=== PATIENT | female | born 1955 | race American Indian/Alaskan Native ===

== ENCOUNTER 2018-03-26 10:37 | Emergency (ER) | payer MEDICARE ==
--- NOTE | 2018-03-26 15:41 | Emergency Department Report ---
Chief Complaint: Earache Stated Complaint: C/O EAR INFECTION/TROUBLE HEARING Time Seen by Provider: 03/26/18 15:35 - HPI History of Present Illness: 62-year-old female presents to the emergency department with complaint of a one to two-week history of some right ear discomfort, decreased hearing from the right ear and some headaches. At first she thought it was a cerumen impaction so she was flushing it with fluid and a little bit of wax to come out but it did not improve her symptoms. She went to a walk-in clinic and somewhat evaluated the right ear and did not find any source of infection. She called her primary care physician and was told to go to the emergency department. She has some pain just behind the right ear and just below it. She has a history of hypertension, kidney disease. She denies any fever. - ROS Review of Systems: Positive for headache, decreased hearing, right ear pain Negative for vision change, slurred speech, fever - Exam Vital Signs: Vital Signs 03/26/18 11:27 Temperature 98.3 F Pulse Rate 63 Respiratory 18 Rate Blood Pressure 177/78 O2 Sat by Pulse 100 Oximetry Physical Exam: Patient is awake and alert and does not appear in any acute distress. Normal- appearing bilateral external ear canals and tympanic membranes. MSE screening note: Focused history and physical exam performed. Due to findings the following was ordered: Patient will have a CBC and BMP. We will do a CT scan of the head and go down far enough to also look at the mastoids. ED Disposition for MSE Condition: Stable Referrals: PRIMARY CARE [Primary Care Provider] - 3-5 Days
[2018-03-26] MEDS ORDERED: TYLENOL PO ONE (15:56)
[2018-03-26 15:57] VITALS: BP 179/77
[2018-03-26] MEDS ORDERED: TYLENOL #3 PO ONE (15:57)
[2018-03-26 16:06] LABS: Calcium 9.6 mg/dL (8.4-10.2)
[2018-03-26 16:13] LABS: Basophils # (Auto) 0.1 K/mm3 (0.0-0.1); Eosinophils # (Auto) 0.1 K/mm3 (0.0-0.4); Eosinophils % (Auto) 0.8 % (0.0-4.3); Hematocrit 32.4 % (30.3-42.9); Hemoglobin 10.7 gm/dl (10.1-14.3); Lymphocytes # (Auto) 3.8 K/mm3 (1.2-5.4); Lymphocytes % (Auto) 33.4 % (13.4-35.0); Mean Corpuscular HGB Conc 33 % (30-34); Mean Corpuscular Hemoglobin 28 pg (28-32); Mean Corpuscular Volume 85 fl (79-97); Monocytes # (Auto) 0.7 K/mm3 (0.0-0.8); Monocytes % (Auto) 5.7 % (0.0-7.3); Platelet Count 423 K/mm3 (140-440); Red Cell Distribution Width 15.4 % (13.2-15.2)
--- NOTE | 2018-03-26 16:41 | Cat Scan Report ---
FINAL REPORT EXAM: CT HEAD/BRAIN WO CON HISTORY: headache, right mastoid pain, decreased hearing TECHNIQUE: CT examination of the head without IV contrast PRIORS: None. FINDINGS: Complete opacification right mastoid air cells and right middle ear cavity. Left mastoid air cells and left middle ear cavity clear. Slight scattered mucosal thickening in the ethmoid sinuses. Nonspecific small fluid level left sphenoid sinus. Bone windows demonstrate no acute fracture. The brain is without mass, mass effect, hemorrhage, or acute infarct. There is no extra-axial intracranial bleed, brain bleed, or midline shift. The ventricles and sulci are age-appropriate. IMPRESSION: No acute CVA, intracranial bleed, or brain mass Nonspecific complete opacification of right mastoid air cells and right middle ear cavity may be secondary to eustachian tube dysfunction. Differential includes right otomastoiditis Small fluid level in left sphenoid sinus may reflect acute sinusitis
[2018-03-26] MEDS ORDERED: TYLENOL ONE (16:47)
--- NOTE | 2018-03-26 16:48 | Cat Scan Report ---
FINAL REPORT EXAM: CT ORBIT/EAR/FOSSA WO CON HISTORY: right mastoid tenderness, decreased hearing TECHNIQUE: CT examination of the skull base centered on the temporal bone region without IV contrast 2-D sagittal and coronal image post processing PRIORS: CT head 03/26/2018 FINDINGS: Moderate mucosal thickening right maxillary sinus. Slight scattered mucosal thickening ethmoid sinuses. Slight mucosal thickening right frontal sinus extending into right frontoethmoidal recess. Nonspecific small fluid level left sphenoid sinus with scattered slight mucosal thickening. Near complete opacification of the right mastoid air cells. Minimal residual aeration of the right mastoid air cell superiorly is associated with very small fluid levels. Complete opacification of the right middle ear cavity. Clear left mastoid air cells. Minimal mucosal thickening left middle ear cavity. Bones are intact without fracture or dislocation. Normal-appearing orbits. IMPRESSION: Near complete opacification of right mastoid air cells with small fluid level. Complete opacification right middle ear cavity and slight mucosal thickening left middle ear cavity. These findings may be secondary to eustachian tube dysfunction. Differential includes right mastoiditis and bilateral otitis media, worse on the right Nonspecific small fluid level in left sphenoid sinus may reflect acute sinusitis Scattered mucosal thickening in multiple paranasal sinus
[2018-03-26] MEDS ORDERED: AUGMENTIN 875 MG PO ONE (17:12)
--- NOTE | 2018-03-26 17:18 | Emergency Department Report ---
ED ENT HPI - General Chief complaint: Earache Stated complaint: C/O EAR INFECTION/TROUBLE HEARING Time Seen by Provider: 03/26/18 15:35 Source: patient Mode of arrival: Ambulatory Limitations: No Limitations - History of Present Illness Initial comments: 62-year-old female past medical history hypertension, chronic kidney disease, anemia presents with complaint of 2 weeks of persistent right earache and slightly decreased hearing right ear. Patient is awake alert and oriented 3. Nontoxic appearing. Denies fevers or chills or purulent drainage from right ear. Fully lucid awake alert and oriented 3, speaking in full sentences. Denies sore throat nausea vomiting. States pain radiates from right ear outward. Denies any blurred vision. Onset/Timin -: week(s) Location: R ear Severity: moderate Severity scale (0 -10): 6 Quality: aching Consistency: constant Improves with: none Worsens with: none - Related Data Previous Rx's Medication Instructions Recorded Last Taken Type Acetaminophen [Acetaminophen TAB] 500 mg PO Q6HR PRN #20 tablet 03/26/18 Unknown Rx Acetaminophen/Codeine [Tylenol 1 tab PO Q6H PRN #12 tab 03/26/18 Unknown Rx /Codeine # 3 tab] Amoxicillin/K Clav Tab [Augmentin 1 tab PO Q12HR #20 tab 03/26/18 Unknown Rx 875 mg] ED Dental HPI - General Chief complaint: Earache Stated complaint: C/O EAR INFECTION/TROUBLE HEARING Time Seen by Provider: 03/26/18 15:35 Source: patient Mode of arrival: Ambulatory Limitations: No Limitations - Related Data Previous Rx's Medication Instructions Recorded Last Taken Type Acetaminophen [Acetaminophen TAB] 500 mg PO Q6HR PRN #20 tablet 03/26/18 Unknown Rx Acetaminophen/Codeine [Tylenol 1 tab PO Q6H PRN #12 tab 03/26/18 Unknown Rx /Codeine # 3 tab] Amoxicillin/K Clav Tab [Augmentin 1 tab PO Q12HR #20 tab 03/26/18 Unknown Rx 875 mg] ED Review of Systems ROS: Stated complaint: C/O EAR INFECTION/TROUBLE HEARING Other details as noted in HPI Constitutional: denies: chills, fever Eyes: denies: eye pain, eye discharge, vision change ENT: ear pain, hearing loss. denies: throat pain Respiratory: denies: cough, shortness of breath, wheezing Cardiovascular: denies: chest pain, palpitations Endocrine: no symptoms reported Gastrointestinal: denies: abdominal pain, nausea, diarrhea Genitourinary: denies: urgency, dysuria, discharge Musculoskeletal: denies: back pain, joint swelling, arthralgia Skin: denies: rash, lesions Neurological: denies: headache, weakness, paresthesias Psychiatric: denies: anxiety, depression Hematological/Lymphatic: denies: easy bleeding, easy bruising ED Past Medical Hx - Past Medical History Hx Hypertension: Yes Additional medical history: anemia - Surgical History Past Surgical History?: No - Social History Smoking Status: Current Every Day Smoker Substance Use Type: None - Medications Home Medications: Home Medications Medication Instructions Recorded Confirmed Last Taken Type Acetaminophen [Acetaminophen TAB] 500 mg PO Q6HR PRN #20 tablet 03/26/18 Unknown Rx Acetaminophen/Codeine [Tylenol 1 tab PO Q6H PRN #12 tab 03/26/18 Unknown Rx /Codeine # 3 tab] Amoxicillin/K Clav Tab [Augmentin 1 tab PO Q12HR #20 tab 03/26/18 Unknown Rx 875 mg] ED Physical Exam - General Limitations: No Limitations General appearance: alert, in no apparent distress - Head Head exam: Present: atraumatic, normocephalic - Eye Eye exam: Present: normal appearance, PERRL, EOMI - ENT ENT exam: Present: mucous membranes moist - Expanded ENT Exam Expanded TM/Canal exam: Erythema: Right TM, Bulging: Right TM (there is no mastoid tenderness on palpation) - Neck Neck exam: Present: normal inspection - Respiratory Respiratory exam: Present: normal lung sounds bilaterally. Absent: respiratory distress - Cardiovascular Cardiovascular Exam: Present: regular rate, normal rhythm. Absent: systolic murmur, diastolic murmur, rubs, gallop - GI/Abdominal GI/Abdominal exam: Present: soft, normal bowel sounds - Extremities Exam Extremities exam: Present: normal inspection - Back Exam Back exam: Present: normal inspection - Neurological Exam Neurological exam: Present: alert, oriented X3 - Psychiatric Psychiatric exam: Present: normal affect, normal mood - Skin Skin exam: Present: warm, dry, intact, normal color. Absent: rash ED Course Vital Signs 03/26/18 03/26/18 03/26/18 11:27 15:56 16:28 Temperature 98.3 F 98.1 F Pulse Rate 63 60 Respiratory 18 18 18 Rate Blood Pressure 177/78 Blood Pressure 179/77 [Left] O2 Sat by Pulse 100 100 Oximetry ED Medical Decision Making - Lab Data Result diagrams: 03/26/18 15:42 03/26/18 15:42 - Medical Decision Making A/P: Right-sided otitis media, chronic mastoiditis 1-case discussed with [facility]. Grant via [facility] hotline. As per my discussion with Dr. Grant and CT report it is unlikely patient has acute mastoiditis will treat empirically for acute otitis media and give patient follow up with outpatient ENT. I informed patient of these results and advised her that it is urgent importance to follow up with ENT as soon as possible any long-term hearing loss be evaluated by specialist 2- Tylenol when necessary, empiric course of Augmentin 10 day course 3-patient given information for [facility] 4- vital signs stable upon discharge, patient is afebrile. Patient does not meet SIRS criteria Critical care attestation.: If time is entered above; I have spent that time in minutes in the direct care of this critically ill patient, excluding procedure time. ED Disposition Clinical Impression: Earache, right Otitis media Qualifiers: Otitis media type: suppurative Chronicity: acute Laterality: right Recurrence: not specified as recurrent Spontaneous tympanic membrane rupture: without spontaneous rupture Qualified Code(s): H66.001 - Acute suppurative otitis media without spontaneous rupture of ear drum, right ear Disposition: DC-01 TO HOME OR SELFCARE Is pt being admited?: No Does the pt Need Aspirin: No Condition: Stable Instructions: Otitis Media (ED) Additional Instructions: [facility] where Dr. Grant (ENT) practices phone number [phone] Prescriptions: Acetaminophen [Acetaminophen TAB] 500 mg PO Q6HR PRN #20 tablet PRN Reason: Pain Acetaminophen/Codeine [Tylenol /Codeine # 3 tab] 1 tab PO Q6H PRN #12 tab PRN Reason: Pain Amoxicillin/K Clav Tab [Augmentin 875 mg] 1 tab PO Q12HR #20 tab Referrals: JOSS ROBINS MD [Staff Physician] - 3-5 Days Time of Disposition: 17:19
== END 2018-03-26 17:36 | disposition home or self-care (01) ==
LOC: ED 10:37
DX: H66.001 Acute suppurative otitis media without spontaneous rupture of ear drum, right ear (principal); I12.9 Hypertensive chronic kidney disease with stage 1 through stage 4 chronic kidney disease, or unspecified chronic kidney disease; N18.9 Chronic kidney disease, unspecified; Z86.2 Personal history of diseases of the blood and blood-forming organs and certain disorders involving the immune mechanism; F17.200 Nicotine dependence, unspecified, uncomplicated
CPT/HCPCS: 36415; 70450; 70480; 80048; 85025; 99284

== ENCOUNTER 2018-11-29 06:11 | Emergency (ER) | payer MEDICARE ==
[2018-11-29 06:22] VITALS: BP 140/92
[2018-11-29] MEDS ORDERED: ATIVAN PO STA (06:54)
[2018-11-29] MEDS ORDERED: DELTASONE PO STA (06:55)
--- NOTE | 2018-11-29 06:55 | Emergency Department Report ---
ED General Adult HPI - General Chief complaint: Headache Stated complaint: UPPER BACK AND HEAD PAIN Time Seen by Provider: 11/29/18 06:50 Source: patient Mode of arrival: Ambulatory Limitations: No Limitations - History of Present Illness Initial comments: 63-year-old -[place] female presents to the emergency department complaining of neck pain which radiates which radiates up to her head. It is worse with range of motion and present for the last 2-4 days. States she had woke up with this pain and is unsure if she slipped in all position but does deny any trauma. She tried to take Motrin, which gives her temporary relief and the pain does resurfaced just no fever, chills, sweats, chest pain, palpitations. There is no change in speech has been no unilateral weakness turbine. No loss of vision. No ringing in the ears. No strange taste loss of consciousness Location: neck Radiation: non-radiation Severity scale (0 -10): 8 Quality: aching Consistency: constant Improves with: none Worsens with: none Associated Symptoms: denies other symptoms, headaches (pain does radiate to the base). denies: chest pain, cough, diaphoresis, loss of appetite, malaise, nausea/vomiting, rash, shortness of breath, syncope, weakness - Related Data Previous Rx's Medication Instructions Recorded Last Taken Type Acetaminophen [Acetaminophen TAB] 500 mg PO Q6HR PRN #20 tablet 03/26/18 Unknown Rx Acetaminophen/Codeine [Tylenol 1 tab PO Q6H PRN #12 tab 03/26/18 Unknown Rx /Codeine # 3 tab] Amoxicillin/K Clav Tab [Augmentin 1 tab PO Q12HR #20 tab 03/26/18 Unknown Rx 875 mg] Methocarbamol [Robaxin TAB] 750 mg PO Q8H PRN #14 tablet 11/29/18 Unknown Rx predniSONE [Deltasone] 20 mg PO QDAY #5 tab 11/29/18 Unknown Rx Allergies Allergy/AdvReac Type Severity Reaction Status Date / Time Penicillins Allergy Hives Verified 11/29/18 06:15 ED Review of Systems ROS: Stated complaint: UPPER BACK AND HEAD PAIN Other details as noted in HPI Constitutional: denies: chills, fever Eyes: denies: eye pain, eye discharge, vision change ENT: denies: ear pain, throat pain Respiratory: denies: cough, shortness of breath, wheezing Cardiovascular: denies: chest pain, palpitations Endocrine: no symptoms reported Gastrointestinal: denies: abdominal pain, nausea, diarrhea Genitourinary: denies: urgency, dysuria, discharge Musculoskeletal: denies: back pain, joint swelling, arthralgia Skin: denies: rash, lesions Neurological: denies: headache, weakness, paresthesias Psychiatric: denies: anxiety, depression Hematological/Lymphatic: denies: easy bleeding, easy bruising ED Past Medical Hx - Past Medical History Previous Medical History?: Yes Hx Hypertension: Yes Additional medical history: anemia, kidney DZ - Surgical History Past Surgical History?: Yes Additional Surgical History: left breast cyst - Social History Smoking Status: Current Every Day Smoker Substance Use Type: None - Medications Home Medications: Home Medications Medication Instructions Recorded Confirmed Last Taken Type Acetaminophen [Acetaminophen TAB] 500 mg PO Q6HR PRN #20 tablet 03/26/18 Unknown Rx Acetaminophen/Codeine [Tylenol 1 tab PO Q6H PRN #12 tab 03/26/18 Unknown Rx /Codeine # 3 tab] Amoxicillin/K Clav Tab [Augmentin 1 tab PO Q12HR #20 tab 03/26/18 Unknown Rx 875 mg] Methocarbamol [Robaxin TAB] 750 mg PO Q8H PRN #14 tablet 11/29/18 Unknown Rx predniSONE [Deltasone] 20 mg PO QDAY #5 tab 11/29/18 Unknown Rx ED Physical Exam - General Limitations: No Limitations General appearance: alert, in no apparent distress - Head Head exam: Present: atraumatic, normocephalic - Eye Eye exam: Present: normal appearance - ENT ENT exam: Present: mucous membranes moist. Absent: normal exam, normal orophraynx, TM's normal bilaterally - Neck Neck exam: Present: normal inspection, tenderness ('s testing tenderness to the right trapezial muscle pain with axillary rotation and lateral flexion. No midline tenderness is appreciated. No lymphadenopathy, no lymphangitis. No rashes are are visible. Spurling's test is negative), full ROM. Absent: lymphadenopathy, thyromegaly - Respiratory Respiratory exam: Present: normal lung sounds bilaterally. Absent: respiratory distress, rales, rhonchi, chest wall tenderness, accessory muscle use - Cardiovascular Cardiovascular Exam: Present: regular rate, normal rhythm. Absent: systolic murmur, diastolic murmur, rubs, gallop - GI/Abdominal GI/Abdominal exam: Present: soft, normal bowel sounds - Extremities Exam Extremities exam: Present: normal inspection - Back Exam Back exam: Present: normal inspection - Neurological Exam Neurological exam: Present: alert, oriented X3 - Psychiatric Psychiatric exam: Present: normal affect, normal mood - Skin Skin exam: Present: warm, dry, intact, normal color. Absent: rash ED Course Vital Signs 11/29/18 06:20 Temperature 97.5 F L Pulse Rate 65 Respiratory 14 Rate Blood Pressure 140/92 O2 Sat by Pulse 100 Oximetry Critical care attestation.: If time is entered above; I have spent that time in minutes in the direct care of this critically ill patient, excluding procedure time. ED Disposition Clinical Impression: Neck pain, Musculoskeletal pain Disposition: - TO HOME OR SELFCARE Is pt being admited?: No Does the pt Need Aspirin: No Condition: Stable Instructions: Spasmodic Torticollis (ED), Cervical Sprain (ED), Muscle Spasm (ED), Cervical Radiculopathy (ED) Referrals: [facility] [Provider Group] - 3-5 Days
== END 2018-11-29 07:07 | disposition home or self-care (01) ==
LOC: ED 06:11
DX: M54.2 Cervicalgia (principal); M79.18 Myalgia, other site; I10 Essential (primary) hypertension; F17.200 Nicotine dependence, unspecified, uncomplicated
CPT/HCPCS: 99282; J7512